=== PATIENT | male | born 1965 | race Caucasian/White ===

== ENCOUNTER 2022-10-10 06:18 | Outpatient (REF) | payer OTHER, SELFPAY ==
--- NOTE | ~2022-10-10 | XR_ITS ---
EXAMINATION: XR SHOULDER, RIGHT CLINICAL INFORMATION: Pain right shoulder COMPARISON: None TECHNIQUE: 3 views of the right shoulder. FINDINGS: There is loss of AC joint space with inferior periapical spurring. The glenohumeral joint space is maintained normal. No visible acute fracture, dislocation or subluxation seen. The soft tissues are normal. XR/XR shoulder RT min 2V IMPRESSION: Mild degenerative changes A.C. joint with inferior spurring. No visible acute fracture or dislocation seen.
== END 2022-10-10 06:19 | disposition home or self-care (01) ==
LOC: HO.HOSX 06:18
PROVIDERS: Visit Provider Physician Assistant
DX: M25.511 Pain in right shoulder (principal); M67.911 Unspecified disorder of synovium and tendon, right shoulder; Z79.899 Other long term (current) drug therapy
CPT/HCPCS: 20610; 73030; J1040

== ENCOUNTER 2022-11-07 10:00 | Outpatient (RCR) | payer OTHER, SELFPAY ==
--- NOTE | 2022-10-30 10:41 | MHC.PT.EP ---
[facility] [place] Office [place] Office [place] Office [address] [phone] F: [phone] F: [phone] F: [phone] F: [phone] Physical Therapy Plan of Care Date of Evaluation: Date of Surgery: Diagnosis: Unspecified disorder of tendon and synovium, R. Assessment: Patient is a 57 year old R handed male who presents with s/s consistent with unspecified disorder of synovium and tendon, R shoulder. 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 Patient past medical history is unremarkable. Current impairments include pain, posture, ROM, strength, activity tolerance and functional mobility. Functional limitations include decreased ability to reach, lift, carry, push, pull and sleep. Patient is motivated with good rehab potential. Skilled PT will address impairments and functional limitations in order to achieve goals. Frequency and Duration: The patient will be seen 2x/week for 5 weeks Short Term Goals: I with HEP - 2 weeks AROM ER to 65 - 3 weeks AROM scaption WNL - 3 weeks Able to sleep pain free - 3 weeks Background Check Coordinator Goals: SPADI 20/130 or less - 5 weeks Strength 4+/5 or better - 5 weeks Return to Pain free PLOF - 5 weeks (-) impingement cluster - 5 weeks Treatment Plan: Modalities to reduce pain, spasms and effusion. Manual therapy to restore motion and function. Therapeutic exercise to improve strength and flexibility. Neuromuscular re-education for posture and balance. Therapeutic activities to return to functional activities of daily living. Electronically signed by: Justin De Guzman, PT Please sign and return to therapist. Thank you for your referral.
--- NOTE | 2023-01-25 08:38 | MHC.PT.DC ---
[facility] [place] Office [place] Office [place] Office [address] Sury Vicente [address] [phone] F: [phone] F: [phone] F: [phone] F: [phone] Physical Therapy Discharge Report Diagnosis: Unspecified disorder of tendon and synovium, R. Date of Surgery: Date of Evaluation: 10/30/22 Date of Discharge: 12/11/22 Treatments to Date: 2 Cancellations to Date: No Shows to Date: Discharge Status: Improved Function Independent with HEP Discharge Summary: He had progress with HEP and elected to continue with this exclusively. 11/02/22: pt has been progressing well overall with skilled PT. compliant with HEP. progressed program. assess response NV. Patient is a 57 year old R handed male who presents with s/s consistent with unspecified disorder of synovium and tendon, R shoulder. 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 Patient past medical history is unremarkable. Current impairments include pain, posture, ROM, strength, activity tolerance and functional mobility. Functional limitations include decreased ability to reach, lift, carry, push, pull and sleep. Patient is motivated with good rehab potential. Skilled PT will address impairments and functional limitations in order to achieve goals. Electronically signed by: Justin De Guzman, PT Please sign and return to therapist. Thank you for your referral.
== END 2023-01-25 08:39 | disposition home or self-care (01) ==
LOC: HO.PTCHIC 10:00
PROVIDERS: PCP Internal Medicine; Visit Provider Physician Assistant
DX: M67.911 Unspecified disorder of synovium and tendon, right shoulder (principal)
CPT/HCPCS: 97110; 97161

== ENCOUNTER → 2022-11-26 09:14 | Outpatient (BNVA) | payer OTHER, SELFPAY | PROVIDERS: PCP Internal Medicine; Visit Provider Physician Assistant | DX: Z13.89 Encounter for screening for other disorder (principal) ==